=== PATIENT | female | born 1995 | race Two or more races ===

== ENCOUNTER 2025-04-30 17:04 | Emergency (ER) | payer OTHER, MEDICAID, SELFPAY ==
[2025-04-30 17:17] VITALS: BP 140/86; PULSE 89; RESP 18; TEMP 37.2; O2SAT 98; BMI 37.8
--- NOTE | 2025-04-30 17:31 | EDNOTE_ITS ---
<Statement entered by Olga King MD - 05/01/25 09:35> As co-signing physician, I was present and available for consult prn. I concur with the plan and care as documented by the midlevel provider. ED Ear RME/HPI General Chief complaint: Ear Stated complaint: Ear infection to both ears Time Seen by Provider: 04/30/25 17:13 Arrival date/time: 04/30/25 17:04 RME / HPI RME / HPI Narrative: 29-year-old female patient came in for evaluation regarding bilateral earache. This been ongoing for the last 3 days, getting worst, severity moderate ,patient feels hot but denies any fever. Denies any sore throat denies any headache. Denies any other complaints. No medication was taken prior to ER visit. Related Data Previous Rx's ?Medication ?Instructions ?Recorded amoxicillin 875 mg-potassium 1 tab PO BID #14 tabs 03/19 clavulanate 125 mg tablet ibuprofen 800 mg tablet 800 mg PO Q8H PRN pain #30 t abs 04/30/25 Allergies Allergy/AdvReac Type Severity Reaction Status Date / Time No Known Allergies Allergy Verified 04/30/25 17:08 Review of Systems Review of Systems Narrative Review of Systems: Review of system reviewed and within normal limits except mentioned in HPI ED Exam Narrative Physical exam: VITAL SIGNS: Reviewed. GENERAL APPEARANCE: Alert and interactive, follows commands, no acute distress, HEAD AND FACE: Non-traumatic. ENT: PERRL, pink conjunctivitis, eyelid no trauma, Mucous membrane moist. Bilateral tympanic membrane with erythema bulging and tender NECK: Supple, nontender, no nuchal rigidity. CHEST: No tenderness, no crepitus, no paradoxical movement, no retractions. LUNGS: Clear, well ventilated, symmetric, no rales, no wheezing, no ronchi, no stridor, good breath sounds bilaterally. HEART: Regular rate, regular rhythm, no murmur, no gallops. ABDOMEN: Soft, positive bowel sounds, nondistended, no guarding, nontender, no rebound, no masses, RECTAL: Deferred. GENITAL: Deferred. NEUROLOGICAL: Gross motor function intact sensory function intact, Appropriate for age. MUSCULOSKELETAL: low back nontender, full range of motion. EXTREMITIES: Nontender, full range of motion. SKIN: Color pink, dry, no rash, no lacerations, no abrasions, no contusions. LYMPHATICS: Deferred. Course Quality Measures none Orders Category Date Time Status Amoxicillin/Pot Clav 875 [Augmentin 875] Med 04/30/25 17:30 Discontinued 1 tab PO X1 ONE Ibuprofen Tab [Motrin Tab] Med 04/30/25 17:30 Discontinued 800 mg PO X1 ONE Vital Signs Vital signs: Vital Signs Temperature 98.9 F 04/30/25 17:17 Pulse Rate 89 04/30/25 17:17 Respiratory Rate 18 04/30/25 17:17 Blood Pressure 140/86 H 04/30/25 17:17 Pulse Oximetry (%) 98 04/30/25 17:17 Oxygen Delivery Method Room Air 04/30/25 17:17 Ear MDM Narrative MDM Narrative:: Empiric antibiotic treatment started in the emergency room for otitis media and patient also received Motrin. Patient data External records reviewed:: None Clinical information provided by:: patient Social determinants that could affect healthcare access:: none Patient has the following chronic illnesses:: None How is presenting disease/condition affected by chronic disease/condition?: no chronic disease Evaluation data The following diagnostics were reviewed and interpreted by me:: other (specify) Lab and/or radiology exams considered but not ordered:: None Interpretation Summary: None Medications / Prescriptions Medications or Prescriptions considered but not ordered:: None Medication administrations:: Medication Administration History Discontinued Medications Amoxicillin/Clavulanate Potassium (Amoxicillin/Pot Clav 875 Tablet) 1 tab PO X1 ONE Stop: 04/30/25 17:31 Ibuprofen (Ibuprofen Tab 400 Mg Tablet) 800 mg PO X1 ONE Stop: 04/30/25 17:31 None Consultations Consultation(s) initiated? (list below): No Diagnosis Ear Differential Diagnosis: otitis externa, otitis media and foreign body in ear Most likely diagnosis given after review of the tests above:: otitis media Admission Indicated Admission indicated?: not indicated Admission Request Was there a request for admission?: No Disposition Plan Disposition Plan: Discharge Discharge Attestation Discharge Attestation: The patient was given an opportunity to ask questions and understood the discharge instructions. Discharge instructions specifically effects, indicatio ns for sooner follow up or return to the emergency department, and the expected course of current diagnosis. Patient condition: Stable Discharge Plan Plan Patient Disposition: HOME (Self Care) Discharge Disposition comment: Stable Prescriptions/Referrals Prescriptions/Med Rec: New amoxicillin-pot clavulanate 875-125 mg tablet 1 tab PO BID Qty: 14 0RF ibuprofen 800 mg tablet 800 mg PO Q8H PRN (Reason: pain) Qty: 30 0RF Problem List Clinical Impression: Otitis media Patient/Caregiver Discharge Instructions Discharge Activity: activity as tolerated Education Materials: ED Otitis Media Antibiotic ... Additional Instructions: Thank you for the opportunity for serving you today. You are stable for discharged . You are advised to: Follow-up with your PCP in 1 to 2 days Return to ED for worsening of symptoms Increase oral fluids Take medication as prescribed Print Language: Citizen Of [place] Stand Alone Forms: Debora Award Info., Patient Portal Info Letter PA/DEVOPS ENGINEER Supervising Physician PA/LOLLY Supervising Physician: MD Catrina
[2025-04-30] MEDS: AMOXICILLIN/POT CLAV 875 TABLET 1 TAB PO (18:27)
[2025-04-30] MEDS: IBUPROFEN TAB 400 MG TABLET 800 MG PO (18:27)
== END 2025-04-30 18:30 | disposition home or self-care (01) ==
LOC: SERX 18:08
PROVIDERS: Emergency Provider Emergency Medicine
DX: H66.93 Otitis media, unspecified, bilateral (principal)
CPT/HCPCS: 99282; A9270